=== PATIENT | male | born 1925 | race Caucasian/White ===

== ENCOUNTER 2017-01-25 19:43 | Observation (INO) | payer MEDICARE, OTHER ==
--- NOTE | ~2017-01-25 | CN ---
Consultation Report [facility] [address] [place]. [address] NAME: JOANNA RUIZ : [birth year] STATUS : ADM Jessica PAT#: [id number] AGE: 89 ADM/REG DATE : 01/25/17 MR#: [id number] REPORT SERV DATE: 01/26/17 DICTATED BY: JHONNY BARTON DATE: 01/26/17 REPORT STATUS : Draft TRANSCRIBED BY: MODL DATE: 01/26/17 CARDIOLOGY CONSULTATION DATE OF CONSULTATION: 01/26/2017 REASON FOR CONSULTATION: Congestive heart failure exacerbation. HISTORY OF PRESENT ILLNESS: An 89-year-old male with known coronary artery disease and systolic congestive heart failure, which is chronic. The patient was last seen in the cardiology office on 12/21/2016, at that time without cardiac complaints. Medications had recently been decreased due to some symptomatic orthostatic hypotension. The symptoms had resolved at followup appointment. The patient denies chest pain. The patient reports over the last several days, he has had estimated 10 pound weight gain. He denies any changes in his usual habits for activities. He denies any recent medication changes. He denies any significant increased fluid intake or change in diet. He reports, he went out yesterday to place [place] on his and son's graves. He states that, he became overheated, felt weak and short of breath. He reported to the emergency department, where he was treated for COPD exacerbation and noted to have elevated beta natriuretic peptide consistent with congestive heart failure and treated with diuretics. He reports improvement in his dyspnea this morning. He reports a cough productive of somewhat discolored sputum. He states, it is really unclear as to the color of the sputum, although he knows that it is not clear or white. He denies fevers or chills. PAST MEDICAL HISTORY: 1. Chronic systolic congestive heart failure - ejection fraction of 41% by echocardiogram, 01/10/2016. 2. Ischemic cardiomyopathy. 3. Coronary artery disease, status post coronary artery bypass grafting, 12/27/1981 at the [facility] in [place]. a. Most recent coronary angiogram, 06/11/2015 with patent SVG to LAD, patent EVA to left circumflex. Occluded right coronary artery and SVG to right coronary artery with [id number] collaterals. 4. Hypertension. 5. Hyperlipidemia. 6. Hypothyroidism. 7. Obstructive sleep apnea. 8. Paroxysmal atrial fibrillation, status post successful cardioversion in 2013. a. Maintained on Xarelto for stroke prophylaxis. 9. Chronic anticoagulation for stroke prophylaxis secondary to history of paroxysmal atrial fibrillation. 10.History of syncope with sick sinus syndrome, status post permanent pacemaker implantation on 07/17/2014 - [employer] brand dual chamber device. 11.History of recurrent vertigo. 12.Peripheral vascular disease, status post abdominal aortic stent graft repair by Consultation Report [address] [address] NAME: JOANNA RUIZ : [birth year] STATUS : ADM Jessica PAT#: [id number] AGE: 89 ADM/REG DATE : 01/25/17 MR#: [id number] REPORT SERV DATE: 01/26/17 DICTATED BY: JHONNY BARTON DATE: 01/26/17 REPORT STATUS : Draft TRANSCRIBED BY: VANESA DATE: 01/26/17 Rima. 13.History of chronic PVCs. MEDICATIONS: Amiodarone 200 mg q.p.m., apixaban 5 mg b.i.d., carvedilol 12.5 mg b.i.d., docusate sodium 100 mg b.i.d., furosemide 20 to 40 mg daily on a sliding scale based upon edema, levothyroxine 100 mcg daily, meloxicam 15 mg daily, pravastatin 40 mg daily, AcipHex 20 mg daily, and valsartan 160 mg daily. ALLERGIES: 1. IODINATED CONTRAST, REACTION IS "COMA". 2. XARELTO WITH HEMORRHAGE. REVIEW OF SYSTEMS: Negative for all organ systems except per the history of present illness. FAMILY HISTORY: Noncontributory. SOCIAL HISTORY: Former smoker. Remote tobacco use. Occasional alcohol intake with consumption of wine on a weekly basis and regular caffeine intake. Denies illicit drug use. PHYSICAL EXAMINATION: VITAL SIGNS: Blood pressure 149/86, blood pressure noted to be 185/102 on admission, saturating 91% on 2 liters nasal cannula, pulse 56 and irregular, weight 83 kg. GENERAL: An elderly male in no acute distress. HEENT: Normal. NECK: Supple, no JVD or bruit, normal carotid upstroke bilaterally, no thyromegaly. LUNGS: Crackles noted in the bases bilaterally. CARDIOLOGY: Regular rhythm, normal S1, S2, no thrill, no murmur, rubs or gallops, normal PMI. ABDOMEN: Bowel sounds positive, soft, nontender, and nondistended. No masses or aortic bruits. No hepatosplenomegaly or hepatojugular reflux. EXTREMITIES: 1+ pitting edema to the knees bilaterally. Normal pulses. No clubbing or cyanosis. SKIN: Warm and dry, no significant rash. NEUROLOGIC: Alert and oriented x 3. Appropriate mood. EKG: Ventricularly paced rhythm. LABORATORIES: WBC 5.6, hemoglobin 13, hematocrit 37.9, platelets 119,000. Sodium 142, potassium 4.7, chloride 108, CO2 of 30, BUN 37; creatinine 1.55, previously creatinine was 0.83 on 09/15/2016, glucose 97. Troponin 0.04. INR 1.5. Beta natriuretic peptide is elevated at 1329. CHEST X-RAY: Mild increased interstitial markings consistent with edema noted. Moderate cardiomegaly. Pacemaker noted. Consultation Report [address] [address] NAME: JOANNA RUIZ : [birth year] STATUS : ADM Jessica PAT#: [id number] AGE: 89 ADM/REG DATE : 01/25/17 MR#: [id number] REPORT SERV DATE: 01/26/17 DICTATED BY: JHONNY BARTON DATE: 01/26/17 REPORT STATUS : Draft TRANSCRIBED BY: VANESA DATE: 01/26/17 IMPRESSION: 1. Congestive heart failure exacerbation. Intravenous diuretic per protocol. Strict I's and O's. Careful monitoring of renal function. No evidence of acute coronary syndrome. Continue current medications. 2. Coronary artery disease-asymptomatic. 3. Upper respiratory tract infection - treatment per hospitalist. Thank you for the opportunity to see the patient in consultation. We will continue to follow the patient with you. Echocardiogram has been ordered to re-evaluate left ventricular systolic function. Pacemaker interrogation has been ordered. CSL/VANESA Leidy Barton M.D. / [id number] CC: Rafaela Avalos M.D.
--- NOTE | ~2017-01-25 | HP ---
History And Physical [facility] [address] [place]. [address] NAME: JOANNA LORENZO : [birth year] STATUS : ADM Jessica PAT#: [id number] AGE: 89 ADM/REG DATE : 01/25/17 MR#: [id number] REPORT SERV DATE: 01/26/17 DICTATED BY: ARJUN HAMMOND DATE: 01/26/17 REPORT STATUS : Draft TRANSCRIBED BY: MODL DATE: 01/26/17 DATE OF ADMISSION: 01/25/2017 CHIEF COMPLAINT: Shortness of breath, weakness with any activity. HISTORY OF PRESENT ILLNESS: This is an 89-year-old male with history of coronary artery disease who has had a CABG done, history of COPD, hypothyroidism, status post pacemaker placement, who presents to the emergency room at [facility] with the above-mentioned complaint. History was obtained from the patient, his daughter who is at bedside, and reviewing data available on the [employer] system. According to Mr. Lorenzo and his daughter, his symptoms apparently started about three to four days ago. He started complaining of increasing shortness of breath with any activity and dyspnea with exertion. In the preceding 24 hours prior to the presentation here, he just ran out of breath according to the daughter. Mr. Lorenzo is 89 years old and is not really a very reliable historian. Daughter says he forgets to say anything. They had all witnessed that he had been very short of breath. He thinks he was not short of breath at all. Anyway, family decided to take him to the walk-in clinic where he was examined, and they advised the family to take him straight to the ER because he needed a lot more tests than they could do there. In the emergency room, initial workup revealed markedly elevated BNP, and his chest x-ray showed small bilateral pleural effusions and since his arrival in the ER despite respiratory treatments, the patient continued to have expiratory wheezes. Hospitalist Service is asked to admit him for further evaluation and treatment. At the time of my evaluation, he denied any chest pain or palpitations. He denied any productive cough. Denied any hemoptysis, night sweats, or weight loss. He has not had any falls recently. No loss of consciousness. No history of fevers, chills, nausea, vomiting, diarrhea, hematemesis, hematochezia, or hematuria. No other history of recent travel or exposures other than those mentioned above. PAST MEDICAL HISTORY: Significant for history of coronary artery disease with CABG, history of COPD, obstructive sleep apnea, hypothyroidism. He also has a pacemaker placed. He has nephrolithiasis and gastroesophageal reflux disease as well. SOCIAL HISTORY: He used to smoke long time ago, multiple packs a day, but he has not smoked in a very long time now. He denies alcohol use or recreational drug use. 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 FAMILY HISTORY: Noncontributory. MEDICATIONS: At home were reviewed by me in the chart today and reordered by me. REVIEW OF SYSTEMS: As in history of present illness. All other systems were reviewed in detail and are quite History And Physical [address] [address] NAME: JOANNA LORENZO : [birth year] STATUS : ADM Jessica PAT#: [id number] AGE: 89 ADM/REG DATE : 01/25/17 MR#: [id number] REPORT SERV DATE: 01/26/17 DICTATED BY: ARJUN HAMMOND DATE: 01/26/17 REPORT STATUS : Draft TRANSCRIBED BY: VANESA DATE: 01/26/17 unremarkable. PHYSICAL EXAMINATION: GENERAL: This is a pleasant 89-year-old, not in any acute distress. HEENT: His head is atraumatic, normocephalic. He is alert, awake, oriented to time, place, and person. His pupils are equal, reacting to light and accommodating. External ocular muscles are intact. Membranes are moist and pink. Sclerae are nonicteric. NECK: Supple with no jugular venous distention, lymphadenopathy, or thyromegaly. LUNGS: Clear to auscultation with no wheezes, rubs, or crackles. HEART: Heart sounds are regular with no murmurs, rubs, or gallops. ABDOMEN: Soft, nontender. Bowel sounds are present. EXTREMITIES: Showed no cyanosis, clubbing, or edema. NEUROLOGIC: Grossly intact with no focal, sensory, or motor deficits. Higher functions appear intact. Gait is not examined. VITAL SIGNS: Today showed a temperature of 97.1, pulse 71, respirations 24 a minute, blood pressure was 185/103 upon arrival. At the time of my exam, it was 154/88. Oxygen saturations were 96%, breathing 2-3 L via nasal cannula. LABORATORY DATA: Reviewed on the [employer] system showed a pH of 7.47 on arterial blood gas, pCO2 was 31, PO2 of 66, and bicarb was 21.8. This was on 4 L of oxygen via nasal cannula. CMP showed a sodium of 142, potassium was 4.7, chloride 108 with CO2 of 30, BUN was 37 with a creatinine of 1.55, this is up from his baseline of 0.8 to 0.9. Blood glucose was 97, GFR was 39 today. Troponin was 0.04 today and BNP was elevated at 1329.8. CBC revealed a normal white blood cell count of 6500, hemoglobin was 13, hematocrit 37.9, platelet count was 119,000. Urinalysis was not done today. Films of the chest x-ray were reviewed by me on the PACS today and interpreted by me. Today's films were compared to prior films available on the PACS as well. Per my interpretation, there is history of sternotomy, a left-sided pacemaker in place, and cardiomegaly. Lung fowler showed no lobar consolidation. There are small bilateral pleural effusions seen. A 12-lead EKG done in the emergency room was reviewed and interpreted by me. Per my interpretation, there is ventricular paced rhythm at a rate of 72 per minute. IMPRESSION: 1. Shortness of breath. 2. Acute on chronic congestive heart failure. 3. Volume overload. 4. Chronic obstructive pulmonary disease with exacerbation. 5. Acute kidney injury. 6. Coronary artery disease with coronary artery bypass graft. 7. Hypothyroidism. 8. Obstructive sleep apnea. PLAN: We will admit Mr. Lorenzo to the Hospitalist Service with telemetry for a 24-hour observation. We will start him on intravenous diuretics gently, follow outputs and weights. We will also get an echocardiogram in the morning and consult Dr. Barton to see him in the morning. He is on amiodarone and other medications that we will be continuing at this time. History And Physical [address] [address] NAME: JOANNA LORENZO : [birth year] STATUS : ADM Jessica PAT#: [id number] AGE: 89 ADM/REG DATE : 01/25/17 MR#: [id number] REPORT SERV DATE: 01/26/17 DICTATED BY: ARJUN HAMMOND DATE: 01/26/17 REPORT STATUS : Draft TRANSCRIBED BY: VANESA DATE: 01/26/17 We will also go ahead and maximize the bronchodilator treatments, continue supplemental oxygen therapy, and place him on intravenous steroids as well. We will go ahead and check his TSH as well. We will follow this with chemistry in the morning along with CBC and replete electrolytes as indicated. He is on Eliquis, which we will be continuing at this time as well. Further recommendations will follow after the results are available from the above tests and Dr. Barton has seen the patient. Hospitalist Service will be following him during his stay. /VANESA Arjun Hammond M.D. / [id number]
--- NOTE | ~2017-01-25 | DS ---
Discharge Summary [facility] [address] [place]. [address] NAME: JOANNA RUIZ : [birth year] STATUS : DIS Jessica PAT#: [id number] AGE: 89 ADM/REG DATE : 01/25/17 MR#: [id number] REPORT SERV DATE: 01/27/17 DICTATED BY: DATE: REPORT STATUS : Draft TRANSCRIBED BY: MODL DATE: 01/27/17 ADMISSION DATE: 01/25/2017 DISCHARGE DATE: 01/27/2017 DISCHARGE DIAGNOSES: 1. Acute on chronic systolic heart failure. 2. Volume overload. 3. Chronic obstructive pulmonary disease exacerbation. 4. Chronic atrial fibrillation, on anticoagulation. 5. Acute kidney injury. 6. Hypothyroid. 7. Obstructive sleep apnea. 8. Hiatal hernia with gastritis. 9. Dementia. 10.History of abdominal aortic aneurysm repair. 11.Sick sinus syndrome with pacemaker. 12.Vertigo. 13.Hypertension. 14.Peripheral vascular disease, status post abdominal aortic stent placement. 15.History of tobacco abuse. CONSULTATIONS: Dr. Barton with Cardiology. PROCEDURES AND IMAGING: Chest PA and lateral, 01/25/2017 shows recurrent mild congestive failure. Cardiomegaly. Pacemaker. Prior CABG procedures changes stable. HOSPITAL COURSE: Please refer to H and P dictated by Dr. Arjun Oscar on 01/25/2017 for complete details regarding the patient's admission. In brief, the patient was admitted by Dr. Oscar for initial workup and management of his shortness of breath and weakness with activity. The patient presented to the ER with increasing shortness of breath with activity, which had been noted more by his family than by the patient. Upon admission, the patient's BNP was 1329.8 and the patient was admitted for diuresis and cardiac evaluation. It was also noted at that time that the patient was suffering from acute kidney injury. The patient uses Lasix 20 to 40 mg p.r.n. at home depending on his bilateral lower extremity edema. On echocardiogram, the patient showed mild systolic heart failure with ejection fraction of 45%. The heart failure team has seen the patient, and the patient will be placed on a 1500 mL fluid restriction. Over the last 24 hours, the patient has diuresed 855 mL of fluid. The patient's COPD exacerbation was evaluated with overnight pulse oximetry to establish whether the patient would need home O2. His O2 saturation at the lowest was 89%, but averaged between 90% and 94% on room air. We will also be doing a home study eval with activity and at rest to establish whether the patient needs home O2. The patient will be discharged with Singulair, Spiriva, ProAir p.r.n., and prednisone for five more days. The patient's acute kidney injury has mildly improved with BUN being 40, creatinine 1.34, and GFR of 54. The patient has been getting Bumex IV q.8 hours. The patient has a history of chronic AFib with a history also of ablation. The patient is chronically on Eliquis for anticoagulation. The patient also had sick sinus syndrome, which required him to have a Discharge Summary [address] [address] NAME: JOANNA RUIZ : [birth year] STATUS : DIS Jessica PAT#: [id number] AGE: 89 ADM/REG DATE : 01/25/17 MR#: [id number] REPORT SERV DATE: 01/27/17 DICTATED BY: DATE: REPORT STATUS : Draft TRANSCRIBED BY: MODL DATE: 01/27/17 pacemaker inserted. The patient has a history of hypertension, which has been controlled on his home blood pressure medications except for one episode last night where it elevated to 189/81. The patient will be resuming his home Diovan upon discharge. PHYSICAL EXAMINATION: GENERAL: The patient is an 89-year-old male who is sitting up in chair. The patient denies shortness of breath. The patient also states he was up walking in the halls all night which was denied by his daughter. He does exhibit some mild confusion and short-term memory loss. VITAL SIGNS: Blood pressure 189/81, O2 saturation 99% on room air, temperature is 97.9, heart rate is 64, respirations are 16. NEUROLOGIC: The patient is alert and oriented x2, pleasant and cooperative. Cranial nerves 2 through 12 are grossly intact. Affect is bright. He does exhibit short-term memory loss HEENT: Head is atraumatic, normocephalic. No xanthelasma. Sclerae are clear on the right eye, left eye has medial conjunctival injection, but no discharge or complaint of pain or itching. NECK: Supple with no obvious thyromegaly or lymphadenopathy. Neck veins are flat. CARDIAC: S1, S2 with a regular paced rhythm. LUNGS: With right upper lobe, right lower lobe, and left lower lobe expiratory squeaks which is improved from yesterday. The patient's work of breathing with conversation has substantially improved since yesterday. GI: Abdomen is soft and nontender with active bowel sounds in all four quadrants. The patient has normal bowel habitus. No palpable organomegaly. EXTREMITIES: No significant edema, clubbing, or cyanosis. Pulses present and equal bilaterally. MUSCULOSKELETAL: Moves all extremities x4. He is ambulatory without assistance. SKIN: Skin is warm and dry with normal color and turgor. DISCHARGE DIET: 2 g sodium diet. This has been reviewed with the patient and family. DISCHARGE MEDICATIONS: Apixaban 5 mg p.o. twice daily, amiodarone 200 mg daily, Lasix 20 to 40 mg p.o. daily which the patient adjust dose based on edema, Coreg 12.5 mg p.o. twice daily, Colace 100 mg twice daily, levothyroxine 100 mcg daily, Mobic 15 mg daily, pravastatin 40 mg daily, Diovan 160 mg daily, Spiriva Respimat two puffs daily, ProAir two puffs as needed q.4 to 6 hours p.r.n. shortness of breath, AcipHex 20 mg daily, Singulair 10 mg daily, prednisone 40 mg daily x5 days. ALLERGIES: THE PATIENT IS ALLERGIC TO CONTRAST MEDIA AND HAS ADVERSE REACTION TO XARELTO IN THE FORM OF GI HEMORRHAGE. DISCHARGE INSTRUCTIONS: The patient is to follow up with Dr. Nielson in seven days and Dr. Barton with Cardiology in three to four weeks. The patient needs to be taking daily weights and keeping a log. The patient will be going home on a 1.5 L fluid restriction. Should the patient have any more increased shortness of breath or chest pain, he should notify his PCP, Cardiology, or presents to the ER. Approximately 30 minutes has been spent coordinating discharge care of this patient including [id number] encounter and summarization of the discharge. Discharge Summary [facility] [address] [facility] [place]. [address] NAME: JOANNA RUIZ : [birth year] STATUS : DIS Jessica PAT#: [id number] AGE: 89 ADM/REG DATE : 01/25/17 MR#: [id number] REPORT SERV DATE: 01/27/17 DICTATED BY: DATE: REPORT STATUS : Draft TRANSCRIBED BY: MODL DATE: 01/27/17 SLC/MODL Debbie Baker NP / [id number] CC: Rafaela Avalos
[~2017-01-25 19:43] MED LIST: ACIPHEX PO; ALLEGRA180 PO; ALTACE10 MG PO; ANUSOL HC SUPP1 SUPP PR; ASA5GR PO; ASAB PO; ASABAYER PO; BEN25 PO; C5 PO; CORDARONE PO; COREG12 PO; COREG25 PO; COREG3 PO; COUMADIN4 MG; CYANO1000T PO; DIOV160 PO; DIOV80 PO; DSS PO; ELIQUIS 5 MG TAB5 MG PO; HYT5 PO; JANTOVEN5 MG PO; K500 PO; KLOR-CON 1010 MEQ PO; L20 PO; LEVOTHROID25 MCG PO; LEVOTHROID50 MCG PO; LEVOTHYROXIN25 MCG PO; LEVOTHYROXIN50 MCG PO; LEVOTHYROXIN75 MCG PO; LORTAB 5 PO; METAMUCIL CAN7 OZ PO; METPAKSF PO; MIRALAXPKT PO; MOBIC15 MG PO; MULTIPLE VIT PO; MULTIVITAMI1 PO; NORV5 PO; OSTEO BI-FLEX1 EACH PO; PLAVIX PO; PRAVACHOL40 MG PO; PREVAGEN PO; PRILO PO; ULTRAM50 PO; VENTOLIN HFA INH; XARELTO20 MG PO; [UNRECOGNIZED DRUG - OTHER]; [UNRECOGNIZED DRUG - OTHER] PO
[2017-01-25 20:23] LABS: BASOPHILS 0.5 %; BASOPHILS ABSOLUTE 0.03 10/3/uL (0.0-0.16); EOSINOPHILS 1.7 %; EOSINOPHILS ABSOLUTE 0.11 10/3/uL (0.0-0.53); HEMATOCRIT 37.9 % (40.0-51.0); IMMATURE GRANULOCYTES 0.2 %; IMMATURE GRANULOCYTES ABSOLUTE 0.01 10/3/uL (0.0-0.11); LYMPHOCYTES 20.1 %; LYMPHOCYTES ABSOLUTE 1.31 10/3/uL (0.67-4.30); MEAN CORPUS HGB CONC 34.3 g/dL (32.0-36.0); MEAN CORPUSCULAR HEMOGLOB 32.9 pg (26.0-34.0); MEAN CORPUSCULAR VOLUME 95.9 fL (80-100); MEAN PLATELET VOLUME 12.4 fL (9.2-13.0); MONOCYTES 7.8 %; MONOCYTES ABSOLUTE 0.51 10/3/uL (0.21-1.20); NEUTROPHILS 69.7 %; NEUTROPHILS ABSOLUTE 4.56 10/3/uL (2.02-8.40); PLATELET COUNT 119 10/3/uL (150-400); RBC DISTRIBUTION WIDTH 14.9 % (12.0-16.0); RED CELL COUNT 3.95 10/6/uL (4.7-6.1); WHITE BLOOD CELLS 6.5 10/3/uL (4.5-10.5)
[2017-01-25 20:24] LABS: MANUAL DIFF NO %
[2017-01-25 20:30] LABS: INTERNATIONAL NORMAL RATI 1.5 UNITS (-); PARTIAL THROMBO TIME 33.7 SEC (22.5-37.2)
[2017-01-25 20:31] LABS: PROTIME (NOT ORD) 18.1 SEC (12.0-14.5)
[2017-01-25 20:39] LABS: CALCIUM, SERUM 8.3 MG/DL (8.5-10.4); CHEST PAIN PROFILE TAT 0 Hrs 20 Mins; CHLORIDE, SERUM 108 MMOL/L (96-112); CO2 (CARBON DIOXIDE) 30 MMOL/L (24-34); GFR AFRICAN AMERICAN 45 ML/MIN (>=60); GFR NON AFRICAN AMERICAN 39 ML/MIN (>=60); GLUCOSE, SERUM 97 MG/DL (60-99); POTASSIUM, SERUM 4.7 MMOL/L (3.5-5.3); TROPONIN I 0.04 NG/ML (<0.05)
[2017-01-25 20:41] LABS: BUN (BLOOD UREA NITROGEN) 37 MG/DL (6-23); CREATININE 1.55 MG/DL (0.70-1.30); SODIUM, SERUM 142 MMOL/L (135-148)
[2017-01-25 22:29] LABS: ALLENS TEST Pos; BE (BASE EXCESS) -0.8 MEQ/L (0 +/- 2.5); CARBOXYHEMOGLOBIN 1.1 % (0-3); HCO3 (ACTUAL BICARBONATE) 21.8 MEQ/L (23-27); HEMOBLOGIN CONTENT 13.2 G/DL (14-18); INSTRUMENT SERIAL # 8087; METHEMOGLOBIN 0.3 % (0-3); OPERATOR ID 35390; PCO2 (CO2 TENSION) 31 MMHG (35-45); PO2 (O2 TENSION) 66 MMHG (79-93); SAMPLE Arterial; pH 7.47 (7.37-7.43)
[2017-01-25] MEDS ORDERED: ELIQUIS 5 MG TAB5 MG PO (23:10)
[2017-01-25] MEDS ORDERED: ACIPHEX PO (23:11)
[2017-01-25] MEDS ORDERED: PACERONE200 MG PO (23:11)
[2017-01-25] MEDS ORDERED: DIOV160 PO (23:11)
[2017-01-25] MEDS ORDERED: L20 PO (23:11)
[2017-01-25] MEDS ORDERED: MOBIC15 MG PO (23:12)
[2017-01-25] MEDS ORDERED: SYN1 PO (23:12)
[2017-01-25] MEDS ORDERED: COREG12 PO (23:12)
[2017-01-25] MEDS ORDERED: PRAVACHOL40 MG PO (23:13)
[2017-01-25] MEDS ORDERED: DSS PO (23:13)
[2017-01-26 04:44] LABS: BASOPHILS 0 %; EOSINOPHILS 0 %; HEMATOCRIT 39.2 % (40.0-51.0); HEMOGLOBIN 13.4 g/dL (13.6-17.8); LYMPHOCYTES 8.7 %; LYMPHOCYTES ABSOLUTE 0.41 10/3/uL (0.67-4.30); MEAN CORPUS HGB CONC 34.2 g/dL (32.0-36.0); MEAN CORPUSCULAR HEMOGLOB 32.8 pg (26.0-34.0); MEAN CORPUSCULAR VOLUME 96.1 fL (80-100); MEAN PLATELET VOLUME 12.6 fL (9.2-13.0); MONOCYTES 0.6 %; MONOCYTES ABSOLUTE 0.03 10/3/uL (0.21-1.20); NEUTROPHILS 90.7 %; NEUTROPHILS ABSOLUTE 4.26 10/3/uL (2.02-8.40); PLATELET COUNT 111 10/3/uL (150-400); RBC DISTRIBUTION WIDTH 14.8 % (12.0-16.0); RED CELL COUNT 4.08 10/6/uL (4.7-6.1); WHITE BLOOD CELLS 4.7 10/3/uL (4.5-10.5)
[2017-01-26 04:46] LABS: MANUAL DIFF NO %
[2017-01-26 05:04] LABS: BUN (BLOOD UREA NITROGEN) 35 MG/DL (6-23); CALCIUM, SERUM 8.4 MG/DL (8.5-10.4); CHLORIDE, SERUM 108 MMOL/L (96-112); CO2 (CARBON DIOXIDE) 25 MMOL/L (24-34); CREATININE 1.41 MG/DL (0.70-1.30); GFR AFRICAN AMERICAN 51 ML/MIN (>=60); GFR NON AFRICAN AMERICAN 44 ML/MIN (>=60); GLUCOSE, SERUM 187 MG/DL (60-99); PHOSPHORUS, SERUM 2.5 MG/DL (2.5-4.5); SODIUM, SERUM 140 MMOL/L (135-148)
[2017-01-27 04:42] LABS: BASOPHILS 0 %; EOSINOPHILS 0.1 %; EOSINOPHILS ABSOLUTE 0.01 10/3/uL (0.0-0.53); HEMATOCRIT 35.9 % (40.0-51.0); HEMOGLOBIN 12.5 g/dL (13.6-17.8); IMMATURE GRANULOCYTES 0.1 %; IMMATURE GRANULOCYTES ABSOLUTE 0.01 10/3/uL (0.0-0.11); LYMPHOCYTES 5.1 %; LYMPHOCYTES ABSOLUTE 0.46 10/3/uL (0.67-4.30); MEAN CORPUS HGB CONC 34.8 g/dL (32.0-36.0); MEAN CORPUSCULAR HEMOGLOB 32.8 pg (26.0-34.0); MEAN CORPUSCULAR VOLUME 94.2 fL (80-100); MEAN PLATELET VOLUME 12.9 fL (9.2-13.0); MONOCYTES 1.5 %; MONOCYTES ABSOLUTE 0.14 10/3/uL (0.21-1.20); NEUTROPHILS 93.2 %; NEUTROPHILS ABSOLUTE 8.43 10/3/uL (2.02-8.40); PLATELET COUNT 114 10/3/uL (150-400); RBC DISTRIBUTION WIDTH 14.8 % (12.0-16.0); RED CELL COUNT 3.81 10/6/uL (4.7-6.1)
[2017-01-27 04:43] LABS: MANUAL DIFF NO %; WHITE BLOOD CELLS 9.1 10/3/uL (4.5-10.5)
[2017-01-27 04:54] LABS: BUN (BLOOD UREA NITROGEN) 40 MG/DL (6-23); CALCIUM, SERUM 8.4 MG/DL (8.5-10.4); CHLORIDE, SERUM 102 MMOL/L (96-112); CO2 (CARBON DIOXIDE) 29 MMOL/L (24-34); CREATININE 1.34 MG/DL (0.70-1.30); GFR AFRICAN AMERICAN 54 ML/MIN (>=60); GFR NON AFRICAN AMERICAN 47 ML/MIN (>=60); GLUCOSE, SERUM 136 MG/DL (60-99); POTASSIUM, SERUM 3.8 MMOL/L (3.5-5.3); SODIUM, SERUM 139 MMOL/L (135-148)
[2017-01-27] MEDS ORDERED: SINGULAIR1 PO (13:38)
[2017-01-27] MEDS ORDERED: PROAIR HFA INH (13:39)
[2017-01-27] MEDS ORDERED: SPIRIVA RESPIMAT INH (13:40)
[2017-01-27] MEDS ORDERED: P20 PO (13:40)
== END 2017-01-27 14:33 | disposition home or self-care (01) ==
LOC: ER 19:43 → CDU1 23:27 → CDU2 01-26 00:01
PROVIDERS: Emergency Medicine; Internal Medicine; Internal Medicine Cardiovascular Disease; Optometrist
DX: I50.23 Acute on chronic systolic (congestive) heart failure (principal); I11.0 Hypertensive heart disease with heart failure; E87.70 Fluid overload, unspecified; J44.1 Chronic obstructive pulmonary disease with (acute) exacerbation; I48.2 Chronic atrial fibrillation; S37.009A Unspecified injury of unspecified kidney, initial encounter; F03.90 Unspecified dementia, unspecified severity, without behavioral disturbance, psychotic disturbance, mood disturbance, and anxiety; E03.9 Hypothyroidism, unspecified; G47.33 Obstructive sleep apnea (adult) (pediatric); I73.9 Peripheral vascular disease, unspecified; I49.5 Sick sinus syndrome; R42 Dizziness and giddiness; K44.9 Diaphragmatic hernia without obstruction or gangrene; K29.70 Gastritis, unspecified, without bleeding; Z86.79 Personal history of other diseases of the circulatory system; Z95.0 Presence of cardiac pacemaker; Z95.5 Presence of coronary angioplasty implant and graft; Z72.0 Tobacco use; Z79.899 Other long term (current) drug therapy; Z88.8 Allergy status to other drugs, medicaments and biological substances; Z91.041 Radiographic dye allergy status; Z95.1 Presence of aortocoronary bypass graft
CPT/HCPCS: 36600; 71020; 80048; 82805; 82962; 83735; 83880; 84100; 84443; 84484; 85025; 85610; 85730; 93005; 93288; 93306; 94640; 96374; 96375; 96376; 99285; A9270-GY; G0378; J0360; J2920; J2930